=== PATIENT | male | born 1965 | race Caucasian/White ===

== ENCOUNTER 2018-06-04 12:27 | Inpatient (IN) | payer OTHER ==
[~2018-06-04] VITALS: Ht 170.2 cm; Wt 67.5 kg
[2018-06-04 12:42] VITALS: BP 99/58
[2018-06-04 13:38] LABS: BE(vivo) -2.2 mmol/L (-2 to +3); HCO3 23.3 mmol/L (22.0-26.0); PCO2 VENOUS 42.5 mmHg (41.0-51.0); PO2 VENOUS 29.1 mmHg (35.0-45.0)
[2018-06-04 13:44] LABS: ABSOLUTE NEUTROPHILS 13.4 thou/uL (1.4-8.2); BASOPHILS 0.4 % (0.0-2.0); EOSINOPHILS 0.1 % (0.0-3.0); HEMOGLOBIN 15.8 gm/dL (14.0-18.0); LYMPHOCYTES 4.2 % (24.0-44.0); MCH 29.9 pg (26.0-34.0); MCHC 33.5 g/dL (28.0-37.0); MCV 89.3 fL (80.0-100.0); MONOCYTES 7.6 % (1.0-8.0); PLATELET COUNT 245 thou/uL (150-400); POLYS 87.7 % (36.0-66.0); RBC 5.26 mil/uL (4.50-6.00); RDW 13.5 % (10.5-14.5); WBC 15.3 thou/uL (4.0-11.0)
[2018-06-04 13:55] LABS: ANION GAP 11 mmol/L (7-16); BUN 30 mg/dL (7-18); CALCIUM 9.9 mg/dL (8.5-10.1); CHLORIDE 100 mmol/L (98-107); CO2 24 mmol/L (21-32); CREATININE 1.4 mg/dL (0.7-1.3); GLUCOSE 125 mg/dL (74-106); POTASSIUM 4.1 mmol/L (3.5-5.1); SODIUM 135 mmol/L (136-145)
[2018-06-04] MEDS ORDERED: TACROLIMUS5 MG PO (14:00)
[2018-06-04] MEDS ORDERED: LOVASTATIN 20 M20 MG PO (14:01)
[2018-06-04] MEDS ORDERED: ZOLOFT50 MG PO (14:01)
[2018-06-04 14:02] LABS: ALBUMIN 3.5 g/dL (3.4-5.0); SGOT 12 U/L (15-37); SGPT 19 U/L (30-65); TOTAL PROTEIN 7.8 g/dL (6.4-8.2); TROPONIN-I <0.06 ng/mL (<0.06)
[2018-06-04] MEDS ORDERED: PREDNISONE 5 MG5 M1 PO (14:02)
[2018-06-04] MEDS ORDERED: LISINOPRIL10 MG PO (14:02)
--- NOTE | 2018-06-04 14:02 | EKG ---
[address] [address] ELECTROCARDIOGRAM REPORT Name: KAVITA BRADY [id number] Admission: 06/04/18 Attend Phys: Discharge: Date of : 69 Report #: [id number] THIS REPORT FOR: //name// [facility] ED Test Date: 2018-06-04 Test Time: 13:43:11 Pat Name: KAVITA BRADY Department: Room: Gender: Bolt Loader: NANY : [id number] Requested By: Precious Bustillo Order Number: [id number] MD: Pedro Pablo Del Angel Measurements Intervals [place] Rate: 109 P: 56 ME: 153 QRS: 59 QRSD: 93 T: 56 QT: 320 QTc: 431 Interpretive Statements Sinus tachycardia Otherwise no significant abnormality No previous ECG available for comparison Electronically Signed On 06-04-2018 14:02:31 SHEET SORTER by Pedro Pablo Del Angel [email or web address] <ELECTRONICALLY SIGNED> By: Pedro Pablo Del Angel MD, [facility] 06/04/18 1402 1343 1343 Pedro Pablo Del Angel MD, FACC /EPI
[2018-06-04 15:51] VITALS: BP 123/71
[2018-06-04 16:45] VITALS: BP 165/84
[2018-06-04 16:51] LABS: URINE BILIRUBIN NEGATIVE (Negative); URINE BLOOD NEGATIVE (Negative); URINE CLARITY CLEAR; URINE COLOR YELLOW; URINE GLUCOSE-RANDOM* NEGATIVE (Negative); URINE KETONES NEGATIVE (Negative); URINE LEUKOCYTES-REFLEX 2+ (Negative); URINE NITRITE-REFLEX NEGATIVE (Negative); URINE PROTEIN (DIPSTICK) NEGATIVE (Negative); URINE UROBILINOGEN 0.2 E.U./dl (0.2-1.0)
[2018-06-04 16:55] LABS: CASTS None Seen /LPF (None Seen); SQUAMOUS 0-3 Few /LPF (0-3); URINE RBC None Seen /HPF (0-2); URINE WBC-REFLEX 0-5 Rare /HPF (0-5)
[2018-06-04 16:56] LABS: BACTERIA-REFLEX None Seen /HPF (None Seen); CRYSTALS None Seen /LPF (None Seen)
--- NOTE | 2018-06-04 18:30 | NUR ---
PATIENT ADMITTED FROM ED DEPARTMENT. ALERT AND ORIENTED X4, SINUS TACYCARDIA ON TEMP RECRUITER. ON 2L NASAL CANNULA, NON-PRODUCTIVE COUGH. ON REGULAR DIET, TOLERATING WELL. PATIENT UP INDEPENDENTLY. NO SIGNS OF ACUTE DISTRESS NOTED AT THIS TIME. PATIENT UPDATED ON PLAN OF CARE. WILL CONTINUE TO MONITOR.
[2018-06-04 19:17] VITALS: BP 137/81
[2018-06-05 05:25] LABS: BE(vivo) -6.4 mmol/L (-2 to +3); HCO3 18.1 mmol/L (22.0-26.0); pH 7.356 (7.360-7.450); sO2 94.9 % (92.0-98.0)
--- NOTE | 2018-06-05 05:37 | NUR ---
ASSESSMENT: PT REMAIN ALERT AND ORIENT TIMES FOUR. PIRCE, UP TO BR. ST PER MONITOR 120'S -130'S. BALE PILER SHAHANA LAMAS NOTIFIED OF PT'S HR. A ONE TIME ORDER FOR METOPROLOL 5MG IVP WAS GIVEN. HR DID DECREASE SLOWLY AND SUSTAINED AT 85-90 RANGE. PT WAS SLEEPY DURING THE NIGHT AND REQUESTED THAT HE BE ABLE TO GET SOME SLEEP. PT HAS A NON-PRODUCTIVE COUGH THAT IS CHRONIC. C/O A HEADACHE, TYLENOL GIVEN WITH GOOD RESULTS. SLOW PROGRESS, WILL CONTINUE TO MONITOR.
[2018-06-05 05:48] VITALS: BP 119/69
[2018-06-05 05:49] LABS: HEMATOCRIT 42.2 % (42.0-52.0); HEMOGLOBIN 14.2 gm/dL (14.0-18.0); MCHC 33.7 g/dL (28.0-37.0); MCV 89.1 fL (80.0-100.0); PLATELET COUNT 222 thou/uL (150-400); RBC 4.73 mil/uL (4.50-6.00); RDW 13.5 % (10.5-14.5); WBC 12.6 thou/uL (4.0-11.0)
[2018-06-05 06:15] LABS: ALBUMIN 2.7 g/dL (3.4-5.0); CALCIUM 8.7 mg/dL (8.5-10.1); CREATININE 1.3 mg/dL (0.7-1.3); MAGNESIUM 1.5 mg/dL (1.8-2.4); POTASSIUM 4.2 mmol/L (3.5-5.1); TOTAL PROTEIN 6.5 g/dL (6.4-8.2)
[2018-06-05 07:39] VITALS: BP 117/45
[2018-06-05 07:41] LABS: PLATELET ESTIMATE NORMAL
--- NOTE | 2018-06-05 12:44 | NUR ---
TOWARDS POC PT A/O X4, VSS, AFBERILE. NO PAIN NOTED. PT REMAINED UP AD ANJEL ON THE ROOM. IV RFA INSERTED. ONETIME MAG GIVEN.NO CONCERNS VOICED. WILL CONTINUE TOP MONITOR.
[2018-06-05 15:24] VITALS: BP 148/84
[2018-06-05 19:09] VITALS: BP 155/87
--- NOTE | 2018-06-06 01:09 | NUR ---
ASSUMED CARE OF PT AT 1900. PT A&OX4. UP AD ANJEL IN THE ROOM. STATES HE IS HAVING PAIN 8/10 FROM HIS HIPS AND LOWER BACK. STATES THIS IS CHRONIC PAIN AND TRAMADOL THAT IS ORDERED DOES NOT HELP WITH PAIN RELIEF. OVAL OR CIRCULAR GLASS CUTTER ON DUTY NOTIFIED AND NEW ORDERS NOTED. WILL CONTINUE TO MONITOR.
[2018-06-06 04:06] VITALS: BP 157/97
[2018-06-06 06:30] LABS: ALBUMIN 2.4 g/dL (3.4-5.0); CALCIUM 8.5 mg/dL (8.5-10.1); CREATININE 0.9 mg/dL (0.7-1.3); MAGNESIUM 1.7 mg/dL (1.8-2.4); POTASSIUM 3.6 mmol/L (3.5-5.1)
[2018-06-06 08:38] VITALS: BP 151/87
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
--- NOTE | 2018-06-06 11:22 | NUR ---
TOWARDS POC ASSUME CARE AT 0700, VSS, AFEBRILE. PT REMAINED IN 3L O2. C/O OF HEADACHE THIS NOON. WILL GIVE PRN PAIN MEDS. PT UP AD ANJEL IN THE ROOM. IVF DC'D. INSTRUCTED TO TAKE PLENTY OF FLUIDS. REFUSED TO HAVE A BATH OFFERRED BY BATH LADY. NO CONCERNS VOICED AT THIS TIME WILL CONTINUE TO MONITOR.
--- NOTE | 2018-06-06 14:06 | NUR ---
ORDERS RECEIVED FOR EVAL AND TREAT. Pt STATES HE HAS BEEN GETTING UP WITHOUT DIFFICULTY AND STATES HE DOES NOT NEED OUR SERVICES. Pt DECLINING FORMAL P.T. EVAL BUT IS CURRENTLY UP AD ANJEL.
[2018-06-06 15:39] VITALS: BP 146/64
[2018-06-06 19:34] VITALS: BP 157/89
[2018-06-07 04:23] LABS: HEMATOCRIT 38.8 % (42.0-52.0); HEMOGLOBIN 12.8 gm/dL (14.0-18.0); MCH 29.1 pg (26.0-34.0); MCHC 32.9 g/dL (28.0-37.0); MCV 88.3 fL (80.0-100.0); RBC 4.4 mil/uL (4.50-6.00); WBC 13.9 thou/uL (4.0-11.0)
--- NOTE | 2018-06-07 04:50 | NUR ---
ASSUMED CARE AT 1900 06/06/18, PT ASSESSMENT AND VSS COMPLETE PER CLARED TELE. PT ALERT AND ORIENTED X4, PT ABLE TO FOLLOW COMMANDS. PT ON RA SATS IN THE 90'S, PT SOUNDS WHEEZY, NO SOA NOTED. PT IN ST, SR RHYTHM THROUGH OU THE NIGHT. PT BP SBP WAS INTIALLY 150'S BUT AROUND 2300, PT ASKS THE NURSING STAFF TO RECHECK HIS BP, HE STATES HE FEELS LIKE HE HAS A HEADACHE, PT SBP IS THE 170'S, PT TELLS ME THAT HE TAKES LISINOPRIL 10MG AT HOME, AND THAT HE HAS SOME PILLS WITH HIM, PT IS EDUCATED THAT THESE MEDS HAVE TO BE SENT TO PHARMACY. I COUNTED EACH PILL HE HAD WITH A WITNESS RN AND WALKED THIS TO PHARMACY. SHAHANA PHELPS CALLED, LISINOPRIL RESTARTED. PLAN OF CARE-CONT TO MONITOR.
[2018-06-07 05:06] LABS: ALBUMIN 2.5 g/dL (3.4-5.0); CALCIUM 8.7 mg/dL (8.5-10.1); CREATININE 0.8 mg/dL (0.7-1.3); MAGNESIUM 1.3 mg/dL (1.8-2.4); PHOSPHORUS 1.9 mg/dL (2.5-4.9); POTASSIUM 3.2 mmol/L (3.5-5.1)
[2018-06-07 05:39] VITALS: BP 163/95
[2018-06-07 07:56] VITALS: BP 147/91
[2018-06-07 14:17] VITALS: BP 140/84
[2018-06-07 19:25] VITALS: BP 166/78
--- NOTE | 2018-06-07 20:54 | NUR ---
PATIENT ALERT AND ORIENTED AND WOULD LIKE TO DISCHARGE HOME SO HE CAN RECOVER BETTER. HE DOES NOT LIKE TO FOOD HERE AND REQUESTED SNACKS FROM THE [facility]. PATIENT TO BE NPO AT MIDNIGHT FOR BRONCOSCOPY TOMORROW BY DR. LEE.
[2018-06-08 03:25] VITALS: BP 162/98
[2018-06-08 05:30] LABS: HEMOGLOBIN 13.5 gm/dL (14.0-18.0); MCH 29.6 pg (26.0-34.0); MCHC 33.9 g/dL (28.0-37.0); MCV 87.5 fL (80.0-100.0); PLATELET COUNT 361 thou/uL (150-400); RBC 4.57 mil/uL (4.50-6.00); RDW 13.2 % (10.5-14.5); WBC 9.4 thou/uL (4.0-11.0)
[2018-06-08 05:53] LABS: ALBUMIN 2.5 g/dL (3.4-5.0); MAGNESIUM 1.8 mg/dL (1.8-2.4); PHOSPHORUS 2.9 mg/dL (2.5-4.9); POTASSIUM 3.6 mmol/L (3.5-5.1)
[2018-06-08 06:15] LABS: ABSOLUTE NEUTROPHILS 6.3 thou/uL (1.4-8.2)
[2018-06-08 06:17] LABS: PLATELET ESTIMATE NORMAL
--- NOTE | 2018-06-08 06:33 | NUR ---
Pt a/o x 4, on O2 2L NC. VSS. NPO after midnight for bronchoscopy. Consent signed. No apparent distress noted at this time. Will continue to monitor.
[2018-06-08 08:00] VITALS: BP 165/91
--- NOTE | 2018-06-08 12:01 | NUR ---
PT ADMITTED RELATED TO PNEUMONIA. CM REVIEWED CHART AND SPOKE WITH CARE TEAM. CM MET WITH PT AT BEDSIDE THIS DAY. PT IS A&O X4. CM ROLE INTRODUCED. PT INDICATED HE LIVES IN A HOUSE WITH HIS SIG OTHER AND HIS KIDS. PT INDICATED THERE ARE 2 STEPS TO ENTER AND THAT HE DIDN'T HAVE ANY DIFFULCTY NAVIGATING STEPS. PT INDICATED NO DME OR HH HX. PT INDICATED HE PLANS TO RETURN HOME ONCE MEDICALLY STABLE. CM TO FOLLOW INDICATED WITH DC PLANNING.
--- NOTE | 2018-06-08 15:19 | NUR ---
Assumed pt care at 0645, pt is a/ox4 with no concerns or questions. will continue to monitor
[2018-06-08 16:00] VITALS: BP 147/86
[2018-06-08 19:27] VITALS: BP 151/91
--- NOTE | 2018-06-09 02:46 | NUR ---
PT UP AD ANJEL PT USED CALL LIGHT EFFECTIVELY NO ISSUES OVERNIGHT VS STABLE.
[2018-06-09 04:28] VITALS: BP 143/75
[2018-06-09 05:27] LABS: HEMATOCRIT 41.8 % (42.0-52.0); LYMPHOCYTES 9.1 % (24.0-44.0); MCH 29.6 pg (26.0-34.0); MCHC 33.4 g/dL (28.0-37.0); MCV 88.5 fL (80.0-100.0); MONOCYTES 1.6 % (1.0-8.0); PLATELET COUNT 394 thou/uL (150-400); POLYS 88.3 % (36.0-66.0); RBC 4.73 mil/uL (4.50-6.00); RDW 13.7 % (10.5-14.5); WBC 6.8 thou/uL (4.0-11.0)
[2018-06-09 05:40] LABS: ALBUMIN 2.6 g/dL (3.4-5.0); CALCIUM 9.5 mg/dL (8.5-10.1); CREATININE 1.2 mg/dL (0.7-1.3); PHOSPHORUS 2.5 mg/dL (2.5-4.9)
[2018-06-09 05:45] LABS: POTASSIUM 4.8 mmol/L (3.5-5.1)
[2018-06-09 09:33] VITALS: BP 137/85
[2018-06-09] MEDS ORDERED: FAMOTIDINE20 MG/2 M2 IV PUSH (12:44)
[2018-06-09] MEDS ORDERED: SERTRALINE HCL50 MG PO (12:44)
[2018-06-09] MEDS ORDERED: CARDIZEM CD120 MG PO (12:44)
[2018-06-09] MEDS ORDERED: HYDROCODON-ACE1 EAC7 PO (12:44)
[2018-06-09] MEDS ORDERED: MAGNESIUM400 MG PO (12:44)
[2018-06-09] MEDS ORDERED: LISINOPRIL10 MG PO (12:44)
[2018-06-09 14:01] VITALS: BP 137/85
--- NOTE | 2018-06-09 16:13 | NUR ---
Pt vs stable, he is alert and oriented and able ambulate on his own in the halls. DC orders given and instructions and prescriptions given to the pt. Pt medication in the pharmacy will be taken by the pt when he leaves the hospital, stub given to the pt. IV and telemetry machine removed.
== END 2018-06-09 17:15 | disposition home or self-care (01) | DRG 871 ==
LOC: ER 12:27 → 4W 15:27 → EROBS 15:27 → 4W 16:47
PROVIDERS: Internal Medicine Nephrology; Student in an Organized Health Care Education/Training Program; ADMIT Internal Medicine
PROC: 0B9F8ZX Drainage of Right Lower Lung Lobe, Via Natural or Artificial Opening Endoscopic, Diagnostic (ICD-10-PCS; principal; 2018-06-08)
DX: A41.9 Sepsis, unspecified organism (principal); J96.01 Acute respiratory failure with hypoxia; J18.1 Lobar pneumonia, unspecified organism; N17.9 Acute kidney failure, unspecified; Z94.83 Pancreas transplant status; Z94.0 Kidney transplant status; K21.9 Gastro-esophageal reflux disease without esophagitis; K80.20 Calculus of gallbladder without cholecystitis without obstruction; N18.9 Chronic kidney disease, unspecified; E83.42 Hypomagnesemia; I25.10 Atherosclerotic heart disease of native coronary artery without angina pectoris; I12.9 Hypertensive chronic kidney disease with stage 1 through stage 4 chronic kidney disease, or unspecified chronic kidney disease; E11.22 Type 2 diabetes mellitus with diabetic chronic kidney disease; J20.9 Acute bronchitis, unspecified; Z89.432 Acquired absence of left foot; Z89.431 Acquired absence of right foot; Z90.49 Acquired absence of other specified parts of digestive tract; Z88.6 Allergy status to analgesic agent; Z88.8 Allergy status to other drugs, medicaments and biological substances; Z87.81 Personal history of (healed) traumatic fracture; Z79.4 Long term (current) use of insulin
CPT/HCPCS: 10045